=== PATIENT | male | born 1975 | race Caucasian/White ===

== ENCOUNTER 2020-11-23 17:32 | Emergency (ER) | payer OTHER ==
[2020-11-23 17:39] VITALS: BP 110/71; PULSE 80; TEMP 98.4; BMI 54.4
[2020-11-23] MEDS ORDERED: IBUPROFEN 400 MG TABLET (FP) PO ONE ×2 (17:54→17:55)
== END 2020-11-23 18:40 | disposition home or self-care (01) ==
LOC: JERFT 17:32
DX: M54.9 Dorsalgia, unspecified (principal)
CPT/HCPCS: 71046-TC-FY; 99283-25